=== PATIENT | female | born 1995 | race Caucasian/White ===

== ENCOUNTER 2017-12-04 13:55 | Outpatient (CLI) | payer OTHER ==
--- NOTE | 2017-12-04 16:37 | XRAY Report ---
Reason: REACTIVE AIRWAY,UNSPECIFICIED ASTHMA,UNCOMPLICATED Procedure Date: 12/04/2017 Accession Number: [id number] / [id number] Procedure: XR - Chest 2 View X-Ray CPT Code: 16398 FULL RESULT: EXAM: CHEST RADIOGRAPHY EXAM DATE: 12/04/2017 02:09 PM. CLINICAL HISTORY: REACTIVE AIRWAY,UNSPECIFICIED ASTHMA,UNCOMPLICATED. COMPARISON: None. TECHNIQUE: 2 views. FINDINGS: Lungs/Pleura: Nonspecific bronchial wall thickening. No dense consolidation. No large effusion or pneumothorax. No pulmonary edema. Mediastinum: Heart and mediastinal contours are unremarkable. Other: None. IMPRESSION: Nonspecific bronchial wall thickening, likely correlating with given history of reactive airways disease. [facility]
== END 2017-12-04 13:56 | disposition home or self-care (01) ==
LOC: DI 13:55
PROVIDERS: ATTEND Specialist
DX: J45.909 Unspecified asthma, uncomplicated (principal)
CPT/HCPCS: 71046

== ENCOUNTER 2019-01-17 12:37 | Outpatient (CLI) | payer OTHER | END 2019-01-17 12:38 | disposition home or self-care (01) | LOC: DI 12:37 | PROVIDERS: ATTEND Internal Medicine Cardiovascular Disease | DX: R00.2 Palpitations (principal) | CPT/HCPCS: 93306 ==